=== PATIENT | female | born 1985 | race Caucasian/White ===

== ENCOUNTER 2025-02-08 08:30 | Outpatient (OUT) | payer OTHER, SELFPAY | END 2025-02-08 08:31 | disposition home or self-care (01) | LOC: SLEEP 02-09 09:33 | PROVIDERS: PCP Psychiatry & Neurology Neurology; Visit Provider Psychiatry & Neurology Neurology | DX: G47.33 Obstructive sleep apnea (adult) (pediatric) (principal); G47.11 Idiopathic hypersomnia with long sleep time | CPT/HCPCS: 95806 ==

== ENCOUNTER 2025-04-13 20:00 | Outpatient (OUT) | payer OTHER, SELFPAY | END 2025-04-13 20:01 | disposition home or self-care (01) | PROVIDERS: PCP Psychiatry & Neurology Neurology; Visit Provider Psychiatry & Neurology Neurology | DX: G47.33 Obstructive sleep apnea (adult) (pediatric) (principal) | CPT/HCPCS: 95811 ==